=== PATIENT | female | born 1995 | race Caucasian/White ===

== ENCOUNTER 2016-12-01 21:18 | Emergency (ER) | payer OTHER ==
[~2016-12-01] VITALS: Ht 170.2 cm; Wt 113.9 kg
[~2016-12-01 21:18] MED LIST: BUSPIRONE HCL10 MG PO; CAMILA0.35 MG PO; CHROMAGEN,1 CAPSULE PO; FERROUS SULFAT325 MG PO; IBUPROFEN800 MG PO; PRENATAL TABLE1 EAC3 PO; SENNA8.6 MG PO; SERTRALINE HCL25 MG PO; XANAX0.25 MG PO; ZOFRAN ODT4 MG PO
[2016-12-01 21:34] VITALS: BP 123/72
[2016-12-01 22:07] LABS: HEMATOCRIT 35.2 % (36.0-46.0); MCH 25.1 PG (29.0-34.0); MCV 80.9 FL (83-99); MEAN PLAT.VOLUME 9.7 uM^3 (9.5-12.4); PLATELET COUNT 307 K/uL (156-360); RBC DIS.WIDTH-CV 14.7 % (11.8-14.6); RBC DIS.WIDTH-SD 42.8 % (39-53); RED BLOOD COUNT 4.35 M/uL (3.80-5.20); WHITE BLOOD COUNT 10.5 K/uL (4.1-10.2)
[2016-12-01 22:17] LABS: CHLORIDE 106 mEq/L (99-109); POTASSIUM 4.1 mEq/L (3.7-5.4); SODIUM 140 mEq/L (136-147)
[2016-12-01 22:20] LABS: GLUCOSE 85 mg/dL (70-99)
[2016-12-01 22:21] LABS: ANION GAP 11 MEQ/L (2-14); TOTAL BILIRUBIN 0.2 mg/dL (0.0-1.0)
[2016-12-01 22:23] LABS: ALKALINE PHOSPHATASE 80 IU/L (3-129); GFR ESTIMATE (CALCULATED) > 59 mL/min/
[2016-12-01 22:24] LABS: UREA NITROGEN (BUN) 12 mg/dL (9-23)
[2016-12-01 22:26] LABS: ADD MIUA? YES; BILIRUBIN NEGATIVE; BLOOD NEGATIVE; COLOR STRAW ((YELLOW)); GLUCOSE (STRIP) NEGATIVE; KETONES NEGATIVE; LEUKOCYTES TRACE; NITRITE NEGATIVE; PROTEIN (STRIP) NEGATIVE; UROBILINOGEN 0.2 MG/DL (0.2-1.0)
[2016-12-01 22:32] LABS: QUANTITATIVE HCG < 4.0 MIU/ML
[2016-12-01 22:32] LABS: BACTERIA NONE SEEN /HPF; EPITHELIAL CELLS RARE /HPF; MUCUS TRACE /LPF; RED BLOOD CELLS 0-5 /HPF (0-5); UCUL ADDED? NO; WHITE BLOOD CELLS 0-5 /HPF (0-5)
[2016-12-01] MEDS ORDERED: ZOFRAN ODT4 MG PO (22:56)
[2016-12-01] MEDS ORDERED: BENTYL20 MG PO (22:56)
== END 2016-12-01 23:05 | disposition home or self-care (01) ==
LOC: EME 21:18 → RME 21:18
DX: R10.31 Right lower quadrant pain (principal)
CPT/HCPCS: 80053; 81003; 84702; 85027; 99281; 99285

== ENCOUNTER 2017-05-05 17:02 | Emergency (ER) | payer OTHER ==
[~2017-05-05] VITALS: Ht 162.6 cm; Wt 114.5 kg
[~2017-05-05 17:02] MED LIST changes: +BENTYL20 MG PO
[2017-05-05] MEDS ORDERED: METHOCARBAMOL500 MG PO (18:44)
[2017-05-05] MEDS ORDERED: METHYLPREDNISOLO4 M1 PO (18:44)
[2017-05-05 20:13] LABS: ADD MIUA? YES; BILIRUBIN NEGATIVE; BLOOD NEGATIVE; COLOR YELLOW ((YELLOW)); GLUCOSE (STRIP) NEGATIVE; KETONES NEGATIVE; LEUKOCYTES MODERATE; NITRITE NEGATIVE; PROTEIN (STRIP) NEGATIVE; SPECIFIC GRAVITY 1.031 (1.000-1.030); UROBILINOGEN 0.2 MG/DL (0.2-1.0)
[2017-05-05 20:15] LABS: INTERNAL CONTROL VALID? YES
[2017-05-05 20:17] LABS: BACTERIA RARE /HPF; EPITHELIAL CELLS 2+ /HPF; MUCUS TRACE /LPF; RED BLOOD CELLS 0-5 /HPF (0-5); WHITE BLOOD CELLS 20-30 /HPF (0-5)
[2017-05-05] MEDS ORDERED: BENADRYL50 MG PO (21:10)
[2017-05-05] MEDS ORDERED: INDOCIN50 MG PO (21:10)
[2017-05-05] MEDS ORDERED: VALIUM2 MG PO (21:10)
[2017-05-05 21:33] VITALS: BP 130/83
== END 2017-05-05 21:33 | disposition home or self-care (01) ==
LOC: EME 17:02
PROVIDERS: Physician Assistant
DX: R19.7 Diarrhea, unspecified (principal); R42 Dizziness and giddiness; T38.0X5A Adverse effect of glucocorticoids and synthetic analogues, initial encounter; T42.8X5A Adverse effect of antiparkinsonism drugs and other central muscle-tone depressants, initial encounter; M54.30 Sciatica, unspecified side
CPT/HCPCS: 81003; 84703; 87086; 99281; 99284